=== PATIENT | female | born 1945 | race Two or more races ===

== ENCOUNTER → 2017-06-10 | Outpatient (CLI) | payer OTHER | END | disposition home or self-care (01) | LOC: HKI 15:22 | DX: M17.0 Bilateral primary osteoarthritis of knee (principal) | CPT/HCPCS: 73564; 73564-50 ==

== ENCOUNTER → 2017-07-11 | Outpatient (CLI) | payer OTHER | END | disposition home or self-care (01) | LOC: HKI 10:51 | DX: M25.562 Pain in left knee (principal); M25.561 Pain in right knee; Z88.0 Allergy status to penicillin; Z79.82 Long term (current) use of aspirin; Z96.653 Presence of artificial knee joint, bilateral | CPT/HCPCS: 20610 ==